=== PATIENT | male | born 1960 | race Caucasian/White ===

== ENCOUNTER 2024-05-10 15:30 | Outpatient (CLI) | payer OTHER, SELFPAY | END 2024-05-10 15:31 | disposition home or self-care (01) | PROVIDERS: Visit Provider Emergency Medicine | DX: Z00.00 Encounter for general adult medical examination without abnormal findings (principal); I10 Essential (primary) hypertension; Z13.6 Encounter for screening for cardiovascular disorders; Z12.5 Encounter for screening for malignant neoplasm of prostate | CPT/HCPCS: 80048; 80061; G0103 ==

== ENCOUNTER 2024-12-13 08:30 | Outpatient (CLI) | payer OTHER, SELFPAY | END 2024-12-13 08:31 | disposition home or self-care (01) | LOC: NFLDREF 12-15 23:41 | PROVIDERS: PCP Emergency Medicine; Referring Provider Emergency Medicine; Visit Provider Emergency Medicine | DX: E78.2 Mixed hyperlipidemia (principal); I10 Essential (primary) hypertension | CPT/HCPCS: 80061 ==